=== PATIENT | female | born 1975 | race Caucasian/White ===

== ENCOUNTER 2017-03-13 03:00 | Inpatient (IN) | payer MEDICARE, OTHER ==
--- NOTE | ~2017-03-13 | PN ---
Unit #: [id number] #: [id number] Patient: DANN FIGUEROA [id number] [facility] [address] [place] [address] [id number] MR#: [id number] NAME: DANN FIGUEROA. ROOM: P122 Age: 41 Sex: F Admission Date: 03/13/2017 : 1975 Attending Physician: Hugo Esparza M.D. Admitting Physician: Hugo Esparza M.D. Primary Care Physician: Generic Doctor Not In System [facility] PROGRESS NOTES DATE 03/19/2017. DISCUSSION Solange shows a little more alertness today with better eye contact and is less irritable. Her mood appears improved. She is alert and oriented to person, location and partially time. Memory and concentration are only fair and her thought processes continue to be somewhat stilted with evidence of response to internal stimuli. ASSESSMENT Schizoaffective order. PLAN We will continue current medications, which are beginning to show response. Dictated by... Neva Garcia/katharine TD: 03/19/2017 16:23 JOB #: [id number] [facility] PROGRESS NOTES Page 1 of 1 X Hugo Esparza MD PROGRESS NOTE
--- NOTE | ~2017-03-13 | HP ---
Unit #: [id number] #: [id number] Patient: DANN FIGUEROA [id number] [place] [address] [id number] I MR#: [id number] NAME: DANN FIGUEROA. ROOM: P122 Age: 41 Sex: F Admission Date: 03/13/2017 : 1975 Attending Physician: Hugo Esparza M.D. Admitting Physician: Hugo Esparza M.D. Primary Care Physician: Generic Doctor Not In System HISTORY AND PHYSICAL HISTORY OF PRESENT ILLNESS Dann is a 41 year old admitted to [address] [place] [address] with psychotic behavior. She is a resident of [facility] in [place]. She ran away from there and was found by police in the bathroom of a gas station talking to herself. She is a poor historian so her history is taken from her chart. PAST MEDICAL HISTORY 1. Obesity. 2. Seasonal allergies. 3. Hyperlipidemia. 4. Diabetes mellitus. PAST SURGICAL HISTORY Nothing reported. ALLERGIES No known drug allergies. SOCIAL HISTORY She denies cigarettes, alcohol, illicit drug use. FAMILY HISTORY Medically noncontributory. REVIEW OF SYSTEMS She does not answer questions appropriately. There are no reports of nausea, vomiting or diarrhea. She has had no cough or increased temperature. CURRENT MEDICATIONS 1. Wellbutrin SR 100 mg daily. 2. Protonix 40 mg daily. 3. Flonase nasal spray daily. 4. Multivitamin 1 daily. 5. Claritin 10 mg daily. 6. Zocor 40 mg q.h.s. 7. Invega 9 mg q.h.s. 8. Propranolol 10 mg b.i.d. 9. Glucophage 500 mg b.i.d. 10. Topamax 50 mg b.i.d. 11. Vistaril p.r.n. 12. Puckett 300 mg daily. Unit #: [id number] #: [id number] Patient: DANN FIGUEROA PHYSICAL EXAMINATION GENERAL: Alert, obese, in no apparent distress. VITAL SIGNS: Blood pressure 110/64, heart rate 80, respirations 16, temperature 98.6. WEIGHT: 174. HEIGHT: 5 feet 6 inches. SKIN: Warm and dry without rash or lesion. HEENT: Normocephalic. TMs not viewed. Oral and nasal passages clear. Conjunctivae clear. PERRLA. EOMs intact. NECK: Supple without lymphadenopathy or thyromegaly. HEART: Regular rate and rhythm without murmur. LUNGS: Clear. ABDOMEN: Soft, nontender. : Not done. EXTREMITIES: No evidence of cyanosis, clubbing or edema. Moves all without focal deficit. NEUROLOGICAL: Unable to complete extended exam. She does move all extremities without focal deficit. Hand access clerk is equal and gait is normal. IMPRESSION Psychiatric admission. RECOMMENDATIONS PSYCHIATRIC: Per psychiatrist. MEDICAL: See no contraindications to participate in facility's activities. MEDICAL PROGNOSIS Good. MEDICAL CONDITION Stable. Dictated by... Raven Alaniz P.A.-C. for Neva Perdue/callie TD: 03/13/2017 22:47 JOB #: [id number] HISTORY AND PHYSICAL Page 1 of 1 X Raven Alaniz X HISTORY AND PHYSICAL
--- NOTE | ~2017-03-13 | DS ---
Unit #: [id number] #: [id number] Patient: DANN FIGUEROA [id number] [facility] [address] [place] [address] [id number] I MR#: [id number] NAME: DANN FIGUEROA. ROOM: P122 Age: 41 Sex: F Admission Date: 03/13/2017 : 1975 Discharge Date: 03/21/2017 Attending Physician: Hugo Esparza M.D. Primary Care Physician: Generic Doctor Not In System DISCHARGE SUMMARY REASON FOR ADMISSION Solange is a 41-year-old woman with a history of schizoaffective disorder, who has been staying at [facility] in [place], [place]. She was apparently noncompliant with medications and eloped from the facility. She was found in disorganized state in the bathroom of a local restaurant and police brought her to [facility], where [facility] DIAGNOSTIC STUDIES LABORATORY RESULTS: Urine drug screen was negative for all drugs of abuse. The patient declined blood draws throughout the hospitalization. HOSPITAL COURSE The patient was admitted and placed on psychosis and suicide precautions. Oral Invega and lithium were restarted, but we were unable to obtain the last dose of her Invega injection. She had a gradual response to the medication, although, her insight remains very superficial and she appeared to be responding to internal stimuli throughout much of the hospitalization. On the date of discharge, she had reduced psychosis, but I am afraid that her insight remained somewhat superficial. Her mood, however, had stabilized and she was able to be safe in the outpatient setting. DISCHARGE DIAGNOSES AXIS I: Schizoaffective disorder, bipolar type. AXIS II: No diagnosis. AXIS III: Hypertension. AXIS IV: AXIS V: DISCHARGE INSTRUCTIONS Follow up with [facility]. DISCHARGE MEDICATIONS [place] 300 mg t.i.d. for mood stability, Invega 9 mg daily for psychosis, Wellbutrin SR 100 mg daily for depression. Primary care medicines to be continued unchanged. CONDITION AT DISCHARGE Improved. Unit #: [id number] #: [id number] Patient: DANN FIGUEROA PROGNOSIS Fair to good. DIET AND ACTIVITY Ad aileen. Dictated by... Neva Garcia/yen TD: 03/21/2017 15:36 JOB #: [id number] DISCHARGE SUMMARY Page 1 of 1 X Hugo Esparza MD DISCHARGE SUMMARY
--- NOTE | ~2017-03-13 | PA ---
Unit #: [id number] #: [id number] Patient: DANN FIGUEROA [id number] [facility] [address] [place] [address] [id number] I MR#: [id number] NAME: DANN FIGUEROA. ROOM: P122 Age: 41 Sex: F Admission Date: 03/13/2017 : 1975 Date of Assessment: Attending Physician: Hugo Esparza M.D. Admitting Physician: Hugo Esparza M.D. Primary Care Physician: Generic Doctor Not In System PSYCHIATRIC ASSESSMENT DATE OF ASSESSMENT 03/13/2017. INFORMANTS The patient reliable; [facility], reliable; [facility], reliable. CHIEF COMPLAINT Psychosis. HISTORY OF PRESENT ILLNESS Dann is a 41-year-old woman with a long history of bipolar disorder with psychosis, variously diagnosed as schizoaffective disorder. She has been staying at [facility] in [place], [place], where she has reportedly been increasingly decompensated. She had eloped from the facility and was found in a disorganized state in the bathroom of a local restaurant. She was somewhat combative and evaluated at Emergency Psychiatry in the [facility]. She was then transferred to [facility]. PAST PSYCHIATRIC HISTORY Last admission to this facility was in 2004. Most recent admission to any facility was apparently in 2013 at the [facility]. She is currently on lithium, Invega, and Invega Sustenna, but doses and schedules are influx at this point. FAMILY PSYCHIATRIC HISTORY Please see previous assessments. SOCIAL HISTORY The patient is on long-term disability for chronic mental illness. She is currently staying at [facility] in [place], [place]. Please see previous assessments for other psychosocial history. PAST MEDICAL HISTORY Previous records reviewed, unchanged. MEDICATIONS Please see MAR. ALLERGIES No known medication allergies. Unit #: [id number] #: [id number] Patient: DANN FIGUEROA SUBSTANCE USE HISTORY The patient has no current chemical dependency issues. MENTAL STATUS EXAMINATION Solange presented as a mildly disheveled woman who appeared her stated age. She had just arrived on the unit and was sleepy and had difficulty maintaining conversation. Her speech was soft, but easily understood. Musculoskeletal examination was calm. The patient declined to participate in further mental status interview, but according to previous records, her mood had been labile with ongoing paranoia and disorganized thought processes. A full mental status examination will be attempted when the patient is able to participate. ASSETS AND LIABILITIES The patient has stable housing and a relationship with an outpatient provider. Liabilities include apparent recent decompensation. ADMITTING DIAGNOSES AXIS I: Bipolar, mixed with psychotic features. AXIS II: No diagnosis. AXIS III: Hypertension. AXIS IV: AXIS V: PSYCHIATRIC PLAN The patient was admitted and placed on psychosis and suicide precautions. We will determine her current lithium level and obtain records to determine the last time she was given her Invega Sustenna injection. We will continue oral Invega for the time being. Once we have a clear picture of her current medication compliance and regimen, we will make appropriate adjustments. TREATMENT GOALS Improved reality testing, reduction in psychosis, improvement in insight, and improvement in coping skills. DISCHARGE PLANNING Follow up with [facility] in [place]. ESTIMATED LENGTH OF STAY 5 days. Dictated by... Hugo Esparza M.D. DYLON/yen TD: 03/14/2017 04:32 JOB #: [id number] Unit #: [id number] #: [id number] Patient: DANN FIGUEROA PSYCHIATRIC ASSESSMENT Page 1 of 1 X Hugo Esparza MD X PSYCHIATRIC ASSESSMENT
--- NOTE | ~2017-03-13 | PN ---
Unit #: [id number] #: [id number] Patient: ADNN FIGUEROA [id number] [facility] [address] [place] [address] [id number] I MR#: [id number] NAME: DANN FIGUEROA. ROOM: P122 Age: 41 Sex: F Admission Date: 03/13/2017 : 1975 Attending Physician: Hugo Esparza M.D. Admitting Physician: Hugo Esparza M.D. Primary Care Physician: Generic Doctor Not In System [facility] PROGRESS NOTES DATE 03/18/2017 DISCUSSION This patient was seen and evaluated on March 18, 2017. She is in her room resting. She denies any complaints. Her sleep and appetite have been adequate. She denies any suicidal ideation and contracts for safety. She remained cooperative during interaction. She will continue inpatient hospitalization for medication management at this time. She will meet with her psychiatrist tomorrow, Dr. Esparza. Dictated by... Maik Lee/martha TD: 03/20/2017 22:43 JOB #: [id number] [facility] PROGRESS NOTES Page 1 of 1 X Michelle Ramirez PROGRESS NOTE
--- NOTE | ~2017-03-13 | PN ---
Unit #: [id number] #: [id number] Patient: DANN FIGUEROA [id number] [facility] [address] [place] [address] [id number] I MR#: [id number] NAME: DANN FIGUEROA. ROOM: P122 Age: 41 Sex: F Admission Date: 03/13/2017 : 1975 Attending Physician: Hugo Esparza M.D. Admitting Physician: Hugo Esparza M.D. Primary Care Physician: Generic Doctor Not In System [facility] PROGRESS NOTES DATE 03/15/2017 DISCUSSION This patient was seen and evaluated on March 15, 2017. She reports feeling much better. The patient is compliant with medication and denies side effects. Her sleep and appetite are adequate. She is attending groups and unit activities. She is pleasant during interaction. There are no over psychotic symptoms at this time. Dictated by... Maik Lee/martha TD: 03/20/2017 21:58 JOB #: [id number] [facility] PROGRESS NOTES Page 1 of 1 X Michelle Ramirez PROGRESS NOTE
--- NOTE | ~2017-03-13 | PN ---
Unit #: [id number] #: [id number] Patient: DANN FIGUEROA [id number] [facility] [address] [place] [address] [id number] I MR#: [id number] NAME: DANN FIGUEROA. ROOM: P122 Age: 41 Sex: F Admission Date: 03/13/2017 : 1975 Attending Physician: Hugo Esparza M.D. Admitting Physician: Hugo Esparza M.D. Primary Care Physician: Alize Doctor Not In System [facility] PROGRESS NOTES DATE 03/17/2017 DISCUSSION Upon today's assessment, I spoke with nursing staff who reports that the patient has been pleasant and has improved somewhat. They report she has been isolating to her room but has been taking her meds and tolerating them quite appropriately. Upon assessing the patient, she reports "I am good." She reports "I am better," but there still appears to be some thought blocking when she is asked certain questions, she stares at this provider and does not respond at that time. MENTAL STATUS EXAM At this time reveals a mildly disheveled casually dressed woman who appears her stated age. She was found lying in bed in her room, resting comfortably and appears to be oriented to person, place, and general circumstances. Her mood at this time appears to be constricted. Affect flat. Her speech was relevant, coherent with a normal rate and tone. Thought processes appeared to be blocked at this time. She denies suicidal or homicidal ideation. When asked if she was suffering from auditory or visual hallucinations, the patient stared blankly at this provided and would not respond. This was asked of her several times but she did refuse to respond to that question. Memory and intellectual functioning appear grossly intact. Judgement and insight appear limited at this time. She reports fair sleep and adequate appetite. We will continue to monitor q.15 minute for safety and continue precautions per cycle. Dictated by... BABAK Del Rio TD: 03/20/2017 12:03 JOB #: [id number] Unit #: [id number] #: [id number] Patient: DANN FIGUEROA [facility] PROGRESS NOTES Page 1 of 1 X WES FAULKNER
--- NOTE | ~2017-03-13 | PN ---
Unit #: [id number] #: [id number] Patient: DANN FIGUEROA [id number] [facility] [address] [place] [address] [id number] I MR#: [id number] NAME: DANN FIGUEROA. ROOM: P122 Age: 41 Sex: F Admission Date: 03/13/2017 : 1975 Attending Physician: Hugo Esparza M.D. Admitting Physician: Hugo Esparza M.D. Primary Care Physician: Generic Doctor Not In System [facility] PROGRESS NOTES DATE 03/20/2017 DISCUSSION Dann continues to show improvement today. She occasionally comes out of her room on the unit. She continues to be somewhat paranoid and has poor insight but is compliant with medications. She is alert and fully oriented with evidence of paranoia, more spontaneous speech and a brighter affect. ASSESSMENT Schizoaffective disorder. PLAN Anticipate discharge to [facility] tomorrow. Dictated by... Neva Garcia/jorge a TD: 03/21/2017 07:10 JOB #: [id number] [facility] PROGRESS NOTES Page 1 of 1 X Hugo Esparza MD PROGRESS NOTE
[2017-03-16 09:41] LABS: URINE APPEARANCE CLEAR; URINE BILIRUBIN NEG (NEG); URINE BLOOD NEG (NEG); URINE COLOR YELLOW; URINE GLUCOSE NEG (NEG); URINE KETONE NEG (NEG); URINE LEUKOCYTE ESTERASE NEG (NEG); URINE NITRATE NEG (NEG); URINE PROTEIN NEG (NEG); URINE UROBILINOGEN 0.2 MG/DL (NEG)
[2017-03-16 11:02] LABS: AMPHETAMINE NEG (NEG); BARBITURATES NEG (NEG); BENZODIAZEPINES NEG (NEG); COCAINE NEG (NEG); MARIJUANA NEG (NEG); OPIATES NEG (NEG); TRICYCLIC ANTIDEPRESSANTS NEG (NEG); U METHADONE NEG (NEG)
== END 2017-03-21 10:41 | disposition home or self-care (01) | DRG 885 ==
LOC: P1S 03:00
PROVIDERS: Psychiatry & Neurology Psychiatry
DX: F25.9 Schizoaffective disorder, unspecified (principal); E11.9 Type 2 diabetes mellitus without complications; I10 Essential (primary) hypertension; E66.9 Obesity, unspecified; E78.5 Hyperlipidemia, unspecified; Z79.84 Long term (current) use of oral hypoglycemic drugs
CPT/HCPCS: 80307; 81003